=== PATIENT | female | born 1955 | race Caucasian/White ===

== ENCOUNTER 2021-10-24 09:19 | Outpatient (CLI) | payer MEDICARE, BC | END 2021-10-24 09:20 | disposition home or self-care (01) | LOC: CSHMAMMO 09:19 | PROVIDERS: ATTEND Internal Medicine | DX: R92.8 Other abnormal and inconclusive findings on diagnostic imaging of breast (principal) | CPT/HCPCS: 76642; 77065; G0279 ==

== ENCOUNTER → 2021-11-12 | Day surgery (SDC) | payer MEDICARE, BC | LOC: CSHMAMMO 07:48 | PROVIDERS: ATTEND Internal Medicine | PROC: 0HBU3ZX Excision of Left Breast, Percutaneous Approach, Diagnostic (ICD-10-PCS; principal; 2021-11-12) | DX: D05.12 Intraductal carcinoma in situ of left breast (principal); Z17.1 Estrogen receptor negative status [ER-] | CPT/HCPCS: 19081; 76098; 88305; 88341; 88342; 88360 ==

== ENCOUNTER 2024-05-03 12:35 | Outpatient (CLI) | payer MEDICARE, BC ==
[~2024-05-03 12:35] MED LIST: Magnevist 469MG/ML 20 ML VIAL ONE
== END 2024-05-03 12:36 | disposition home or self-care (01) ==
LOC: CSHMRI 12:35
PROVIDERS: ATTEND Psychiatry & Neurology Neurology
DX: M48.02 Spinal stenosis, cervical region (principal); M43.12 Spondylolisthesis, cervical region
CPT/HCPCS: 72156; 82565